=== PATIENT | male | born 1945 | race Caucasian/White ===

== ENCOUNTER 2018-01-23 06:44 | Inpatient (IN) | payer OTHER, BC ==
[2018-01-17 10:48] VITALS: BMI 32.5
[2018-01-23] MEDS ORDERED: CEFAZOLIN 2 GM/D5W 2 GM/50 ML ML IVPB ONE (06:45)
[2018-01-23] MEDS ORDERED: TRANEXAMIC ACID 1000 MG/10 ML VIAL IVPUSH ONE (07:00)
[2018-01-23] MEDS ORDERED: VANCOMYCIN 1 GRAM (PRE-DOCKED) 1,000 MG/250 ML BAG IVPB ONE (07:00)
--- NOTE | 2018-01-23 07:37 | HP ---
HISTORY OF PRESENT ILLNESS Patient is a 72 y/o male with a past medical history of DJD, hepatitis c, CAD, HLD, DM, BPH, patient present for an elective right total knee replacement, today with Dr Powers. 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 Smoking:none Alcohol:none Drugs: karly REVIEW OF SYSTEMS CONSTITUTIONAL: Absent: fever, chills, diaphoresis, generalized weakness, malaise, loss of appetite, weight change HEENT: Absent: rhinorrhea, nasal congestion, throat pain, throat swelling, difficulty swallowing, mouth swelling, ear pain, eye pain, visual changes CARDIOVASCULAR: Absent: chest pain, syncope, palpitations, irregular heart rate, lightheadedness , peripheral edema RESPIRATORY: Absent: cough, shortness of breath, dyspnea with exertion, orthopnea, wheezing, stridor, hemoptysis GASTROINTESTINAL: Absent: abdominal pain, abdominal distension, nausea, vomiting, diarrhea, constipation, melena, hematochezia GENITOURINARY: Absent: dysuria, frequency, urgency, hesitancy, hematuria, flank pain, genital pain MUSCULOSKELETAL: present: right knee pain Absent: myalgia, arthralgia, joint swelling, back pain, neck pain SKIN: Absent: rash, itching, pallor HEMATOLOGIC/IMMUNOLOGIC: Absent: easy bleeding, easy bruising, lymphadenopathy, frequent infections ENDOCRINE: Absent: unexplained weight gain, unexplained weight loss, heat intolerance, cold intolerance NEUROLOGIC: Absent: headache, focal weakness or paresthesias, dizziness, unsteady gait, seizure, mental status changes, bladder or bowel incontinence PSYCHIATRIC: Absent: anxiety, depression, suicidal or homicidal ideation, hallucinations. PHYSICAL EXAMINATION: GENERAL: Awake, alert, and fully oriented, in no acute distress. HEAD: Normal with no signs of trauma. EYES: Pupils equal, round and reactive to light, extraocular movements intact, sclera anicteric, conjunctiva clear. No lid lag. EARS, NOSE, THROAT: Ears normal, nares patent, oropharynx clear without exudates. Moist mucous membranes. NECK: Normal range of motion, supple without lymphadenopathy, JVD, or masses. LUNGS: Breath sounds equal, clear to auscultation bilaterally. No wheezes, and no crackles. No accessory muscle use. HEART: Regular rate and rhythm, normal S1 and S2 without murmur, rub or gallop. ABDOMEN: Soft, nontender, not distended, normoactive bowel sounds, no guarding, no rebound, no masses. No hepatomegaly or splenomegaly. MUSCULOSKELETAL: Normal range of motion at all joints. No bony deformities or tenderness. No CVA tenderness. UPPER EXTREMITIES: 2+ pulses, warm, well-perfused. No cyanosis. No clubbing. No peripheral edema. LOWER EXTREMITIES: 2+ pulses, warm, well-perfused. No calf tenderness. No peripheral edema. NEUROLOGICAL: Cranial nerves II-XII intact. Normal speech. Normal gait. PSYCHIATRIC: Cooperative. Good eye contact. Appropriate mood and affect. SKIN: multiple tattoos to billateral lower extremities Warm, dry, normal turgor , no rashes or lesions noted, normal capillary refill. Active Medications Generic Name Dose Route Start Last Admin Trade Name Freq PRN Reason Stop Dose Admin Vancomycin HCl 1,000 mg in 250 mls @ 250 mls/hr 01/23/18 07:00 Vancomycin (Pre-Docked) IVPB 01/23/18 07:59 ONCE ONE Protocol ASSESSMENT/PLAN: 1) MS djd -pending OR today for elective right total knee replacement with Dr Powers 2) cardiovascular CAD - continue fenobirate and asa - chart review completed, echo performed on 12/13/[address] reeves ef 75%, lv wnl and n/uclear stress test preserved lve systolic function, no evidence of ischemia or infarction 3) GI hep c - treated with hervana 2014 f/e/n - npo pending or ppx - mechanical ac only dispo: pt requires inpatient admission Visit type - Case Type Case Type: Scheduled Admission - Emergency Emergency Visit: No - New patient This patient is new to me today: Yes Date on this admission: 01/23/18 - Critical Care Critical Care patient: No
[2018-01-23] MEDS ORDERED: BUPIVACAINE HCL/PF 2.5 MG/ML - 30 ML VIAL IJ ONE (11:24)
[2018-01-23] MEDS ORDERED: BUPIVACAINE LIPOSOME/PF (EXPAREL) 266 MG/20 ML VIAL ONE (11:24)
[2018-01-23] MEDS ORDERED: MIDAZOLAM HCL 2 MG/2 ML SINGLE DOSE VIAL ONE ×3 (11:24→14:22)
[2018-01-23] MEDS ORDERED: PROPOFOL 20 ML ONE ×4 (12:19→14:13)
[2018-01-23] MEDS ORDERED: LIDOCAINE HCL/PF 2% SDV 5ML VIAL ONE (12:21)
[2018-01-23] MEDS ORDERED: ceFAZolin SODIUM 1 GM VIAL ONE ×2 (12:21→15:16)
[2018-01-23] MEDS ORDERED: VANCOMYCIN 1,000 MG VIAL (RESTRICTED TO ID ONLY) ONE (12:21)
[2018-01-23] MEDS ORDERED: ACETAMINOPHEN 1000 MG/100 ML VIAL (NON FORMULARY) IVPB ONE (13:52)
[2018-01-23] MEDS ORDERED: oxyCODONE HCL 5 MG TABLET PO PRN (13:52)
[2018-01-23] MEDS ORDERED: PROMETHAZINE HCL 25 MG/1 ML VIAL IVPUSH PRN (13:54)
[2018-01-23] MEDS ORDERED: ONDANSETRON 4 MG/2 ML VIAL IVPUSH PRN ×2 (13:54→15:11)
[2018-01-23] MEDS ORDERED: ACETAMINOPHEN 325 MG TABLET (FP) PO SCH (14:00)
[2018-01-23] MEDS ORDERED: LACTATED RINGERS SOLUTION 1,000 ML IV SCH ×2 (14:00→15:15)
[2018-01-23] MEDS ORDERED: MAGNESIUM HYDROX 2400MG/30ML ORAL SUSPENSION 30 ML CUP PO PRN (15:11)
[2018-01-23] MEDS ORDERED: MAG HYDROX/AL HYDROX/SIMETH 30 ML UNIT-DOSE CUP PO PRN (15:11)
--- NOTE | 2018-01-23 15:11 | OP ---
Operative Note - Note: Operative Date: 01/23/18 Pre-Operative Diagnosis: R knee DJD Operation: R TKA Implants: [place] Triathlon. Cemented. Femur - 7. Tibia - 7. Poly - 9mm, PS. Patella - 27mm Post-Operative Diagnosis: Same as Pre-op Surgeon: Atif Powers Robotic Machine Tender Production: Mingo Powers (Co-Surgeon) Anesthesiologist/MOVER HELPER: Gordy Coates Anesthesia: Spinal Specimens Removed: Bone, Soft Tissue Estimated Blood Loss (mls): 100 Drains & Tubes with Location: 1 x deep HemoVac Operative Report Dictated: Yes
[2018-01-23] MEDS ORDERED: BENZOIN/ALOE VERA/STORAX/TOLU 58 ML BOTTLE ONE (15:23)
[2018-01-23] MEDS ORDERED: ACETAMINOPHEN INJECTION 100 ML IVPB ONE (16:21)
[2018-01-23] MEDS ORDERED: CEFAZOLIN 1 GM/D5W 1 GM/50 ML BAG IVPB SCH (18:00)
[2018-01-23] MEDS: oxyCODONE HCL 5 MG TABLET PO PRN (18:20)
[2018-01-23] MEDS: CEFAZOLIN 1 GM/D5W 1 GM/50 ML BAG IVPB SCH (20:03)
[2018-01-23] MEDS: SENNOSIDES/DOCUSATE COMBO (SENNA PLUS) TABLET (UD) PO SCH (21:41)
[2018-01-23] MEDS: GABAPENTIN 300 MG CAPSULE (FP) PO SCH (21:41)
[2018-01-23] MEDS ORDERED: ASPIRIN 325 MG TABLET PO SCH (22:00)
[2018-01-23] MEDS ORDERED: oxyCODONE HCL 10 MG SUSTAINED ACTING TABLET PO SCH (22:00)
[2018-01-23] MEDS: ACETAMINOPHEN 325 MG TABLET (FP) PO SCH (23:17)
[2018-01-23] MEDS: ASPIRIN COATED 81 MG TABLET.EC PO SCH (23:18)
[2018-01-24] MEDS ORDERED: VANCOMYCIN 1 GRAM (PRE-DOCKED) 1,000 MG/250 ML BAG IVPB ONE (01:00)
[2018-01-24] MEDS: oxyCODONE HCL 5 MG TABLET PO PRN (03:09)
[2018-01-24] MEDS: CEFAZOLIN 1 GM/D5W 1 GM/50 ML BAG IVPB SCH (03:09)
[2018-01-24] MEDS: ACETAMINOPHEN 325 MG TABLET (FP) PO SCH ×3 (05:29→23:18)
--- NOTE | 2018-01-24 09:05 | PN ---
Physical Exam: SUBJECTIVE: Patient seen and examined OBJECTIVE: Vital Signs Period Temp Pulse Resp BP Sys/Greco Pulse Ox Last 24 Hr 97.6 F-98.4 F 52-94 18-20 104-134/49-89 96-98 GENERAL: The patient is awake, alert, and fully oriented, in no acute distress. HEAD: Normal with no signs of trauma. EYES: PERRL, extraocular movements intact, sclera anicteric, conjunctiva clear. No ptosis. ENT: Ears normal, nares patent, oropharynx clear without exudates, moist mucous membranes. NECK: Trachea midline, full range of motion, supple. LUNGS: Breath sounds equal, clear to auscultation bilaterally, no wheezes, no crackles, no accessory muscle use. HEART: Regular rate and rhythm, S1, S2 without murmur, rub or gallop. ABDOMEN: Soft, nontender, nondistended, normoactive bowel sounds, no guarding, no rebound, no hepatosplenomegaly, no masses. EXTREMITIES: 2+ pulses, warm, well-perfused, no edema. NEUROLOGICAL: Cranial nerves II through XII grossly intact. Normal speech, gait not observed. PSYCH: Normal mood, normal affect. SKIN: Warm, dry, normal turgor, no rashes or lesions noted Active Medications Generic Name Dose Route Start Last Admin Trade Name Markq PRN Reason Stop Dose Admin Acetaminophen 650 mg 01/24/18 00:00 01/24/18 05:29 Tylenol - PO 650 mg Q6HPO CINDY Administration Al Hydroxide/Mg Hydroxide 30 ml 01/23/18 15:11 Mylanta Oral Suspension - PO Q4H PRN DYSPEPSIA Aspirin 81 mg 01/23/18 22:30 01/23/18 23:18 Ecotrin - PO 81 mg BID CINDY Administration Fentanyl 25 mcg 01/23/18 13:54 Sublimaze Injection - IVPUSH [id number] PRN PAIN-PACU ORDER X 4 DOSES ONLY Fentanyl 50 mcg 01/23/18 13:54 Sublimaze Injection - IVPUSH [id number] PRN PAIN-PACU ORDER X 4 DOSES ONLY Gabapentin 300 mg 01/23/18 22:00 01/23/18 21:41 Neurontin - PO 300 mg BID CINDY Administration Lactated Ringer's 1,000 mls @ 125 mls/hr 01/23/18 14:00 Lactated Ringers Solution IV ASDIR [facility] Magnesium Hydroxide 30 ml 01/23/18 15:11 Milk Of Magnesia - PO PRN PRN CONSTIPATION Ondansetron HCl 4 mg 01/23/18 13:54 Zofran Injection IVPUSH Q6H PRN NAUSEA AND/OR VOMITING Ondansetron HCl 4 mg 01/23/18 15:11 Zofran Injection IVPUSH Q6H PRN NAUSEA Oxycodone HCl 5 mg 01/23/18 13:52 Roxicodone - PO Q3H PRN PAIN LEVEL 1-5 Oxycodone HCl 10 mg 01/23/18 13:52 01/24/18 03:09 Roxicodone - PO 10 mg Q3H PRN Administration PAIN LEVEL 6-10 Oxycodone HCl 10 mg 01/23/18 22:00 01/23/18 21:40 Oxycontin - PO 01/26/18 13:53 10 mg BID [facility] Administration Pantoprazole Sodium 40 mg 01/24/18 10:00 Protonix - PO DAILY [facility] Promethazine HCl 12.5 mg 01/23/18 13:54 Phenergan Injection - IVPUSH Q6H PRN NAUSEA-FOR RESCUE AFTER 15 MIN Senna/Docusate Sodium 2 tablet 01/23/18 22:00 01/23/18 21:41 Pericolace - PO 2 tablet BID [facility] Administration ASSESSMENT/PLAN:
[2018-01-24 09:17] LABS: ANION GAP 11 (8-16); BLOOD UREA NITROGEN 18 mg/dl (7-18); CALCIUM 8.8 mg/dl (8.4-10.2); CHLORIDE 106 mmol/L (98-107); CO2 18 mmol/L (22-28); CREATININE 1.2 mg/dl (0.6-1.3); GLUCOSE,RANDOM 139 mg/dl (74-106); POTASSIUM 4.2 mmol/L (3.5-5.1); SODIUM 135 mmol/L (136-145)
[2018-01-24 09:19] LABS: HEMOGLOBIN 12.8 GM/dl (11.7-16.9); MCH 30.5 pg (25.7-33.7); MCHC 33.8 g/dl (32.0-35.9); MEAN CELL VOLUME 90.3 fl (80-96); MEAN PLT VOLUME 11.2 fl (7.5-11.1); PLATELET COUNT 112 K/MM3 (134-434); RBC 4.21 M/mm3 (4.00-5.60); WHITE BLOOD COUNT 10.7 K/mm3 (4.0-10.8)
[2018-01-24] MEDS: GABAPENTIN 300 MG CAPSULE (FP) PO SCH ×2 (10:00→21:44)
[2018-01-24] MEDS: PANTOPRAZOLE 40 MG TABLET (FP) PO SCH (10:00)
[2018-01-24] MEDS: ASPIRIN COATED 81 MG TABLET.EC PO SCH ×2 (10:00→21:44)
[2018-01-24] MEDS: SENNOSIDES/DOCUSATE COMBO (SENNA PLUS) TABLET (UD) PO SCH ×2 (10:00→21:44)
--- NOTE | 2018-01-24 11:49 | PN ---
Progress Note (short form) - Note Progress Note: Anesthesiology Post-op POD#1 s/p right knee arthroplasty under regional/general anesthesia. Pt. is participating in PT this morning. He states that he was having some dizziness earlier related to taking the pain medicine. He states that now he is feeling a bit better but would like to avoid the oxycodone/oxycontin if possible. He does have some residual nerve block present but less so than earlier. VSS. 72 y.o. s/p right knee arthroplasty with stable post-operative course. I have d/c'd the scheduled oxycontin. PRN oxycodone and acetaminophen are still available. Continue management as per primary team.
--- NOTE | 2018-01-24 14:12 | DS ---
Physical Exam: SUBJECTIVE: Patient seen and examined, OBJECTIVE: Patient is a 72 y/o male with a past medical history of DJD, hepatitis c, CAD, HLD, DM, BPH, patient present for an elective right total knee replacement, with Dr Powers. Vital Signs Temperature 98.2 F 01/24/18 06:00 Pulse Rate 94 H 01/24/18 06:00 Respiratory Rate 20 01/24/18 08:18 Blood Pressure 104/49 01/24/18 06:00 O2 Sat by Pulse Oximetry (%) 98 01/24/18 08:18 PHYSICAL EXAM GENERAL: The patient is awake, alert, and fully oriented, in no acute distress. HEAD: Normal with no signs of trauma. EYES: PERRL, extraocular movements intact, sclera anicteric, conjunctiva clear. ENT: Ears normal, nares patent, oropharynx clear without exudates, moist mucous membranes. NECK: Trachea midline, full range of motion, supple. LUNGS: Breath sounds equal, clear to auscultation bilaterally, no wheezes, no crackles, no accessory muscle use. HEART: Regular rate and rhythm, S1, S2 without murmur, rub or gallop. ABDOMEN: Soft, nontender, nondistended, normoactive bowel sounds, no guarding, no rebound, no hepatosplenomegaly, no masses. EXTREMITIES: 2+ pulses, warm, well-perfused, no edema. RIGHT LOWER EXTREMITY: dressing, cdi,hemovac dressing, scant sangenous drainage noted NEUROLOGICAL: Cranial nerves II through XII grossly intact. Normal speech, gait not observed. PSYCH: Normal mood, normal affect. SKIN: Warm, dry, normal turgor, no rashes or lesions noted. LABS CBC,CMP WBC 10.7 K/mm3 (4.0-10.8) 01/24/18 08:04 RBC 4.21 M/mm3 (4.00-5.60) 01/24/18 08:04 Hgb 12.8 GM/dl (11.7-16.9) 01/24/18 08:04 Hct 38.0 % (35.4-49) 01/24/18 08:04 MCV 90.3 fl (80-96) 01/24/18 08:04 MCH 30.5 pg (25.7-33.7) 01/24/18 08:04 MCHC 33.8 g/dl (32.0-35.9) 01/24/18 08:04 RDW 13.0 % (11.9-15.9) 01/24/18 08:04 Plt Count 112 K/MM3 (134-434) L 01/24/18 08:04 MPV 11.2 fl (7.5-11.1) H 01/24/18 08:04 Sodium 135 mmol/L (136-145) L 01/24/18 08:04 Potassium 4.2 mmol/L (3.5-5.1) 01/24/18 08:04 Chloride 106 mmol/L (98-107) 01/24/18 08:04 Carbon Dioxide 18 mmol/L (22-28) L 01/24/18 08:04 Anion Gap 11 (8-16) 01/24/18 08:04 BUN 18 mg/dl (7-18) 01/24/18 08:04 Creatinine 1.2 mg/dl (0.6-1.3) 01/24/18 08:04 Random Glucose 139 mg/dl (74-106) H 01/24/18 08:04 Calcium 8.8 mg/dl (8.4-10.2) 01/24/18 08:04 HOSPITAL COURSE: The patient was admitted to the Med-Surg Unit after an elective right total knee replacement, . The day of surgery, the patient ambulated the hallways with assistance. Narcotic and non-narcotic pain management control was achieved with an oral and IV approach. POD #2, the surgical drain was removed fully intact and without incident. Romy-operative IV ABX were administered. DVT prophylaxis was achieved with SCDs and early ambulation. The patient ambulated with Physical Therapy and no services were recommended upon discharge. Narcotic scripts and or muscle relaxants were checked with [facility] prior to escibe. The discharge instructions and an oral pain management plan were reviewed with the patient. All questions answered. Above plan discussed with Dr. Powers and agreed. Date of Admission:01/23/18 Date of Discharge: 01/24/18 Minutes to complete discharge: 45 <Suzanne Wells - Last Filed: 01/24/18 14:12> Physical Exam: SUBJECTIVE: Patient seen and examined OBJECTIVE: Vital Signs Temperature 98 F 01/25/18 10:45 Pulse Rate 68 01/25/18 10:45 Respiratory Rate 18 01/25/18 10:45 Blood Pressure 167/75 01/25/18 10:45 O2 Sat by Pulse Oximetry (%) 95 01/25/18 08:33 PHYSICAL EXAM GENERAL: The patient is awake, alert, and fully oriented, in no acute distress. HEAD: Normal with no signs of trauma. EYES: PERRL, extraocular movements intact, sclera anicteric, conjunctiva clear. ENT: Ears normal, nares patent, oropharynx clear without exudates, moist mucous membranes. NECK: Trachea midline, full range of motion, supple. LUNGS: Breath sounds equal, clear to auscultation bilaterally, no wheezes, no crackles, no accessory muscle use. HEART: Regular rate and rhythm, S1, S2 without murmur, rub or gallop. ABDOMEN: Soft, nontender, nondistended, normoactive bowel sounds, no guarding, no rebound, no hepatosplenomegaly, no masses. EXTREMITIES: 2+ pulses, warm, well-perfused, no edema. NEUROLOGICAL: Cranial nerves II through XII grossly intact. Normal speech, gait not observed. PSYCH: Normal mood, normal affect. SKIN: Warm, dry, normal turgor, no rashes or lesions noted. LABS CBC,CMP WBC 10.7 K/mm3 (4.0-10.8) 01/24/18 08:04 RBC 4.21 M/mm3 (4.00-5.60) 01/24/18 08:04 Hgb 12.8 GM/dl (11.7-16.9) 01/24/18 08:04 Hct 38.0 % (35.4-49) 01/24/18 08:04 MCV 90.3 fl (80-96) 01/24/18 08:04 MCH 30.5 pg (25.7-33.7) 01/24/18 08:04 MCHC 33.8 g/dl (32.0-35.9) 01/24/18 08:04 RDW 13.0 % (11.9-15.9) 01/24/18 08:04 Plt Count 112 K/MM3 (134-434) L 01/24/18 08:04 MPV 11.2 fl (7.5-11.1) H 01/24/18 08:04 Sodium 135 mmol/L (136-145) L 01/24/18 08:04 Potassium 4.2 mmol/L (3.5-5.1) 01/24/18 08:04 Chloride 106 mmol/L (98-107) 01/24/18 08:04 Carbon Dioxide 18 mmol/L (22-28) L 01/24/18 08:04 Anion Gap 11 (8-16) 01/24/18 08:04 BUN 18 mg/dl (7-18) 01/24/18 08:04 Creatinine 1.2 mg/dl (0.6-1.3) 01/24/18 08:04 Random Glucose 139 mg/dl (74-106) H 01/24/18 08:04 Calcium 8.8 mg/dl (8.4-10.2) 01/24/18 08:04 HOSPITAL COURSE: Date of Admission:01/23/18 Date of Discharge: 01/25/18 The patient was admitted to the Med-Surg Unit after an elective repair of their (problem). Now, s/p ( procedure ). The day of surgery, the patient ambulated the hallways with assistance. Narcotic and non-narcotic pain management control was achieved with an oral and IV approach. POD #1, the surgical drain was removed fully intact and without incident. An xray was obtained and confirmed hardware placement at (level of ), no fractures or dislocations. Romy-operative IV ABX were administered. DVT prophylaxis was achieved with SCDs and early ambulation. The patient ambulated with Physical Therapy and no services were recommended upon discharge. Narcotic scripts and or muscle relaxants were checked with [facility] prior to escibe. The discharge instructions and an oral pain management plan were reviewed with the patient. All questions answered. Above plan discussed with Dr. Maqruez and agreed. Seen and examined this AM. Pt right hemovac drain removed and dressing applied without complications. Pt discharge summary reviewed and in aggreement. Pt to be discharged home. <Stephanie John - Last Filed: 01/25/18 11:47> Visit type - Case Type Case Type: Scheduled Admission - Emergency Emergency Visit: No - New patient This patient is new to me today: Yes Date on this admission: 01/25/18 - Critical Care Critical Care patient: No <John,Stephanie - Last Filed: 01/25/18 11:47>
[2018-01-25] MEDS: ACETAMINOPHEN 325 MG TABLET (FP) PO SCH ×2 (05:48→12:07)
[2018-01-25] MEDS: SENNOSIDES/DOCUSATE COMBO (SENNA PLUS) TABLET (UD) PO SCH (10:46)
[2018-01-25] MEDS: GABAPENTIN 300 MG CAPSULE (FP) PO SCH (10:46)
[2018-01-25] MEDS: PANTOPRAZOLE 40 MG TABLET (FP) PO SCH (10:46)
[2018-01-25] MEDS: ASPIRIN COATED 81 MG TABLET.EC PO SCH (10:46)
[2018-01-25 11:17] VITALS: BP 167/75; PULSE 68; TEMP 98
--- NOTE | 2018-01-25 16:39 | PATH ---
Surgical Pathology Report Patient Name: ZAHEER LEONG Med. Rec. #: [id number] /Age/Gender: 1945 (Age: 72) / M Account: [id number] Location: [facility] [place] MED-SURG Taken: 01/23/2018 Received: 01/23/2018 Reported: 01/25/2018 Physicians: Atif Powers M.D. Specimen(s) Received RIGHT KNEE BONE AND TISSUE Clinical History OA bilateral knees Final Diagnosis KNEE BONE AND SOFT TISSUE, RIGHT, TOTAL KNEE REPLACEMENT: DEGENERATIVE JOINT DISEASE. Electronically Signed Arminda Asif M.D. Gross Description Received in formalin labeled "right knee bone and soft tissue" is a 13 x 9 x 3 cm aggregate of multiple portions of bone and soft tissue. The tibial plateau measures 8 x 6 x 1.5 cm there are focal areas of eburnation identified. The articular surface is porter-yellow and diffusely granular. The underlying trabecular bone is yellow and hard. Mechanic Senior sections submitted in one cassette, following decalcification. __ MARYCRUZ/01/24/2018 marco/01/24/2018
--- NOTE | 2018-01-27 16:23 | OP ---
DATE OF OPERATION: DATE OF DICTATION: 01/27/2018 SURGEON: Atif Powers MD CO-SURGEON: Mingo Powers MD; physician's fish hatchery assistant at [employer] PREOPERATIVE DIAGNOSIS: Tricompartment osteoarthritis, right knee. POSTOPERATIVE DIAGNOSIS: Tricompartment osteoarthritis, right knee. OPERATION PERFORMED: Right cemented posterior stabilized total knee arthroplasty ([place]). ANESTHESIA: Conscious sedation with adductor block and spinal anesthesia. ANTIBIOTICS GIVEN: Kefzol 2 g, vancomycin preoperatively 1 g, and Kefzol 1 g given at the time of release of the tourniquet. PROCEDURE: Patient correctly identified, brought in the operating room. The right lower extremity was prepped, free draped in the routine manner with Betadine scrub solution, wiped with alcohol. Timeout was called, intraoperative evaluation of x-rays noted. A midline incision performed. The incision was taken through the skin and subcutaneous tissue down to the quadriceps tendon. A longitudinal incision was made into the quadriceps tendon along the medial aspect of the parapatellar medial aspect of the tibial tubercle. The patella was capsized laterally. Transection of the cruciate ligament was performed. Severe tricompartment osteoarthritis encountered. The patellar cut was made first with an oscillating saw from patellar ligament to quadriceps tendon receive a size 27 mm patellar button. The appropriate exposure of the tibial then performed, enabling extramedullary alignment jig applied to provide a neutral cut to the tibia to receive a size 7 baseplate. Once this had been performed, the femoral cuts were made with the appropriate jig system of [place] to receive a size 7 posterior stabilized component, ultimately a Triathlon posterior stabilized component was utilized. Once all trialing components were appreciated and found to be well seated, the flexion/extension gaps were even. The ligament stability in the coronal and sagittal plane were normal and there were no kinematic mismatches. The cementing was in 1 stage. The bone bed was thoroughly lavaged with pulse lavage, cemented in 1 stage, all extraneous cement was removed. This brought about excellent positioning of the implant. A slight tilting of the patella necessitated lateral release, which was done from inside the wound. This was a difficult knee replacement because of the size of the man and the massive hypertrophic osteoarthropathy. The closure was as follows: Quadriceps tendon: 1 Vicryl subcutaneous, 1 and 2-0 Vicryl; skin: 3-0 Monocryl with Steri-Strips. No drains utilized. OVERALL COMMENT: The operation went well. Postoperative x-rays were excellent. Atif Powers MD [id number]
== END 2018-01-25 13:02 | disposition home health service (06) | DRG 470 ==
LOC: FM/S 06:44
PROVIDERS: ADMIT Orthopaedic Surgery Orthopaedic Surgery of the Spine; ATTEND Orthopaedic Surgery Orthopaedic Surgery of the Spine
PROC: 0SRC0J9 Replacement of Right Knee Joint with Synthetic Substitute, Cemented, Open Approach (ICD-10-PCS; principal; 2018-01-23 13:00)
DX: M17.11 Unilateral primary osteoarthritis, right knee (principal); I25.10 Atherosclerotic heart disease of native coronary artery without angina pectoris; E78.5 Hyperlipidemia, unspecified; E11.9 Type 2 diabetes mellitus without complications; N40.0 Benign prostatic hyperplasia without lower urinary tract symptoms; Z86.19 Personal history of other infectious and parasitic diseases
CPT/HCPCS: 36415; 73560-TC-RT-FY; 80048; 85027; 88304-TC; 88311-TC; 94760; 97116-GP; 97161-GP; J0131

== ENCOUNTER 2018-12-04 05:52 | Inpatient (IN) | payer OTHER, BC ==
[2018-11-25 12:35] VITALS: BMI 34.4
[2018-12-04] MEDS ORDERED: MIDAZOLAM HCL 2 MG/2 ML SINGLE DOSE VIAL ONE ×3 (06:31→10:21)
[2018-12-04] MEDS ORDERED: SODIUM CHLORIDE 0.9% P/F 10 ML VIAL IJ ONE (06:32)
[2018-12-04] MEDS ORDERED: BUPIVACAINE LIPOSOME/PF (EXPAREL) 266 MG/20 ML VIAL ONE (06:32)
[2018-12-04] MEDS ORDERED: CEFAZOLIN 2 GM in DEXTROSE 5%-WATER - 100 ML IVPB ONE (07:20)
--- NOTE | 2018-12-04 07:25 | HP ---
History & Physical Update - History History: No Change - Physical Physical: No Change - Assessment Assessment: No Change - Plan Plan: No Change (no change since visit on 11/15/18)
[2018-12-04] MEDS ORDERED: BUPIVACAINE HCL/PF 0.5% (5MG/ML) 10 ML VIAL ONE (07:27)
[2018-12-04] MEDS ORDERED: TRANEXAMIC ACID 1000 MG/10 ML VIAL ONE (07:29)
[2018-12-04] MEDS ORDERED: ceFAZolin SODIUM 1 GM VIAL ONE (07:29)
[2018-12-04] MEDS ORDERED: PROPOFOL 20 ML ONE ×2 (07:30)
[2018-12-04] MEDS ORDERED: BENZOIN TINCTURE SWABSTICK TP ONE (10:46)
[2018-12-04] MEDS ORDERED: MAG HYDROX/AL HYDROX/SIMETH 30 ML UNIT-DOSE CUP PO PRN (10:56)
[2018-12-04] MEDS ORDERED: ONDANSETRON 4 MG/2 ML VIAL IVPUSH PRN (10:56)
[2018-12-04] MEDS ORDERED: MAGNESIUM HYDROX 2400MG/30ML ORAL SUSPENSION 30 ML CUP PO PRN (10:56)
[2018-12-04] MEDS ORDERED: LACTATED RINGERS SOLUTION 1,000 ML IV SCH (11:00)
--- NOTE | 2018-12-04 11:02 | PN ---
Progress Note (short form) - Note Progress Note: 72M s/p LEFT total knee replacement POD #0. -Pain control. -DVT PPx: -Chemical: ASA 81mg PO BID x 6 weeks. -Mechanical: JOCE's, SCD's. -Incentive spirometry. -PT/OT/Rehab, OOB. -WBAT LLE. -Antibiotics: Ancef x 2 post op doses. -f/u drain output. -f/u post-op trial of void. -Diet as tolerated. -Keep dressing clean & dry. -Care per medical hospitalist team. -f/u [facility] [place] office 12/13/2018; call for appointment; [phone]. -Will follow. Atif Powers MD (Orthopaedic Surgery).
--- NOTE | 2018-12-04 11:05 | OP ---
Operative Note - Note: Operative Date: 12/04/18 Pre-Operative Diagnosis: Left knee osteoarthritis Operation: Left total knee replacement Implants: [place] Triathlon: Femur - 5. Tibia - 6. Poly - 9mm, PS. Patella - 27mm, symmetric Post-Operative Diagnosis: Same as Pre-op Surgeon: Atif Powers Barrel Assembler Helper: Mingo Powers Anesthesiologist/FILTER PRESS TENDER HEAD: Zain Neely Anesthesia: Spinal Specimens Removed: Bone, soft tissue Estimated Blood Loss (mls): 0 Drains & Tubes with Location: 1 x deep HemoVac Fluid Volume Replaced (mls): 1,000 Operative Report Dictated: Yes
[2018-12-04] MEDS ORDERED: oxyCODONE HCL 5 MG TABLET PO PRN (12:53)
--- NOTE | 2018-12-04 13:43 | CONSULT ---
Consultation: REQUESTING PROVIDER: Dr. Atif Powers CONSULT REQUEST: We have been asked to medically evaluate this patient during the post-operative period. HISTORY OF PRESENT ILLNESS: 72 year-old male with a PMH significant for HTN, HLD, CAD, Hep C s/p Harvoni treatment, DJD, and renal calculi. Patient is s/p left total knee replacement today. REVIEW OF SYSTEMS: CONSTITUTIONAL: Absent: fever, chills, diaphoresis, generalized weakness, malaise, loss of appetite, weight change HEENT: Absent: rhinorrhea, nasal congestion, throat pain, throat swelling, difficulty swallowing, mouth swelling, ear pain, eye pain, visual changes CARDIOVASCULAR: Absent: chest pain, syncope, palpitations, irregular heart rate, lightheadedness , peripheral edema RESPIRATORY: Absent: cough, shortness of breath, dyspnea with exertion, orthopnea, wheezing, stridor, hemoptysis GASTROINTESTINAL: Absent: abdominal pain, abdominal distension, nausea, vomiting, diarrhea, constipation, melena, hematochezia GENITOURINARY: Absent: dysuria, frequency, urgency, hesitancy, hematuria, flank pain, genital pain MUSCULOSKELETAL: Absent: myalgia, arthralgia, joint swelling, back pain, neck pain SKIN: Absent: rash, itching, pallor HEMATOLOGIC/IMMUNOLOGIC: Absent: easy bleeding, easy bruising, lymphadenopathy, frequent infections ENDOCRINE: Absent: unexplained weight gain, unexplained weight loss, heat intolerance, cold intolerance NEUROLOGIC: Absent: headache, focal weakness or paresthesias, dizziness, unsteady gait, seizure, mental status changes, bladder or bowel incontinence PSYCHIATRIC: Absent: anxiety, depression, suicidal or homicidal ideation, hallucinations. PHYSICAL EXAMINATION Vital Signs - 24 hr 12/04/18 12/04/18 12/04/18 07:04 11:35 11:40 Temperature 98.1 F 97.8 F Pulse Rate 107 H 68 64 Respiratory 16 14 16 Rate Blood Pressure 132/78 130/78 135/95 O2 Sat by Pulse 96 Oximetry (%) GENERAL: Awake, alert, and fully oriented, in no acute distress. LUNGS: Breath sounds equal, clear to auscultation bilaterally. No wheezes, and no crackles. No accessory muscle use. HEART: Regular rate and rhythm, S1 and S2 ABDOMEN: Soft, nontender, not distended UPPER EXTREMITIES: 2+ pulses, warm, well-perfused. No cyanosis. No clubbing. Cap refill <2 seconds. No peripheral edema. LOWER EXTREMITIES: 2+ pulses, warm, well-perfused. SCDs and TEDs b/l. Surgical wrap on LLE c/d/i with ice pack. Wound not visualized. +flex/ext toes, + sensory ; Hemovac drain sanguinous fluid NEUROLOGICAL: Cranial nerves II-XII intact. Normal speech. Active Medications Generic Name Dose Route Start Last Admin Trade Name Freq PRN Reason Stop Dose Admin Acetaminophen 650 mg 12/04/18 14:00 Tylenol - PO 12/07/18 13:59 Q6H CINDY Al Hydroxide/Mg Hydroxide 30 ml 12/04/18 10:56 Mylanta Oral Suspension - PO Q4H PRN DYSPEPSIA Aspirin 81 mg 12/04/18 22:00 Asa - PO BID [facility] Cholecalciferol 5,000 unit 12/05/18 10:00 Vitamin D3 - PO DAILY [facility] Fenofibric Acid 135 mg 12/04/18 22:00 Trilipix - PO HS [facility] Folic Acid 1 mg 12/04/18 22:00 Folic Acid - PO HS [facility] Cefazolin Sodium/Dextrose 2 gm in 50 mls @ 100 mls/hr 12/04/18 16:00 Ancef 2 Gm Premixed Ivpb - IVPB 12/05/18 00:29 Q8H CINDY Lactated Ringer's 1,000 mls @ 125 mls/hr 12/04/18 11:00 Lactated Ringers Solution IV 12/05/18 06:00 ASDIR CINDY Magnesium Hydroxide 30 ml 12/04/18 10:56 Milk Of Magnesia - PO PRN PRN CONSTIPATION Ondansetron HCl 4 mg 12/04/18 10:56 Zofran Injection IVPUSH Q6H PRN NAUSEA Oxycodone HCl 5 mg 12/04/18 12:53 Roxicodone - PO Q3H PRN PAIN LEVEL 1-5 Oxycodone HCl 10 mg 12/04/18 12:53 Roxicodone - PO Q3H PRN PAIN LEVEL 6-10 Oxycodone HCl 10 mg 12/04/18 22:00 Oxycontin - PO 12/07/18 12:55 BID CINDY Pantoprazole Sodium 40 mg 12/05/18 10:00 Protonix - PO DAILY [facility] Senna/Docusate Sodium 2 tablet 12/04/18 22:00 Pericolace - PO BID CINDY ASSESSMENT/PLAN 72 year-old male with a PMH significant for HTN, HLD, CAD, Hep C s/p Harvoni treatment, DJD, and renal calculi. Patient is s/p left total knee replacement today. DJD s/p left total knee replacement --POD #0 --perioperative antibiotics per surgery --pain management per surgery --ASA 81mg BID --protonix --bowel regimen --incentive spirometry --Hemovac drain, monitor output --labs in am Hypertension --BP stable --continue Toprol XL Hyperlipidemia --not on statin therapy Coronary artery disease --continue beta immanuel --takes daily ASA, will now be on ASA BID post-op x 6 weeks Hepatitis C --s/p Harvoni treatment --no acute issues FEN Fluids: LR @125mL/hr Electrolytes: replete as indicated Nutrition: regular diet DVT prophylaxis: OOB, ambulation, SCDs, TEDs, ASA 81mg BID Physical therapy Dispo: We will continue to follow the patient. Thank you for this consultative opportunity. Visit type - Emergency Visit Emergency Visit: No - New Patient This patient is new to me today: Yes Date on this admission: 12/04/18 - Critical Care Critical Care patient: No
[2018-12-04] MEDS: ACETAMINOPHEN 325 MG TABLET (FP) PO SCH ×2 (14:39→20:00)
[2018-12-04] MEDS: oxyCODONE HCL 5 MG TABLET PO PRN (14:40)
--- NOTE | 2018-12-04 14:53 | OP ---
DATE OF OPERATION: 12/04/2018 SURGEON: Atif Powers MD LOW PRESSURE BOILER TENDER: Mingo Powers MD; KYLE Vidal PREOPERATIVE DIAGNOSIS: Left fixed varus tricompartment osteoarthritis knee. POSTOPERATIVE DIAGNOSIS: Left fixed varus tricompartment osteoarthritis knee. OPERATION: Left posterior stabilized total knee arthroplasty (Laverne cemented) . ANESTHESIA: Peripheral block spinal anesthesia with conscious sedation. ANTIBIOTICS GIVEN: Kefzol 2 g, vancomycin 1 g preoperative, Kefzol 1 g at the time of release of the tourniquet. TOURNIQUET TIME: 120 minutes. OPERATION DETAILS: Patient correctly identified, brought to the operating room. The left lower extremity was prepped, free draped in the routine manner with Betadine scrub solution, wiped off with alcohol, DuraPrep applied. Midline incision was utilized. This was a sub-vastus approach total knee arthroplasty with the proximal medial aspect of the tibial soft tissues dissected cleanly off the proximal medial tibial bone bed and then the continuation along the soft tissue plane half an inch distal to the border of vastus medialis all the way around to the attachment of the muscle onto the intermuscular septum. Using bipolar Bovie to diathermize small bleeder vessels on the medial aspect of this muscle dissection. The suprapatellar pouch was split longitudinally and a blunt Hohmann placed on the undersurface of the vastus medialis. The 2 towel clip clamps were seated, one into the quadriceps tendon and one into patellar ligament, and holding the patella vertically up, the patella cut was made and the appropriate jig settings seated for a 27-mm patellar button. The patella was cut freehand with no complications utilizing Whitesides principles from the cut being made from patellar ligament to quadriceps tendon. The knee was flexed. Transsection of the ACL performed. An extensive medial release was necessary in order to bring this knee into realignment. This necessitated a dissection of the semimembranosus as well. Once the tibia was mobilized forwards, appropriate jigs were seated. These were extramedullary jig seatings. The tibia was cut. The measurement size of the tibial tray was size 6. The femur was then cut through to 3 degrees of external rotation, 8 mm of bone were taken off the distal end of the femur to maintain the joint line and the jigs were seated in accordance with the epicondylar axis and Whitesides line through the intercondylar notch. The extension gaps were even at 9 mm. The appropriate jig measurement readings were for a size 5 femur (Triathlon). The cuts were made appropriately, the trial components seated. Excellent reduction achieved with a 9 mm polyethylene spacer. The tibial lugholes and fins were cut into the bone bed with the appropriate device. The bone bed was then thoroughly lavaged with pulse lavage. Cementing was in 1 stage: Tibia, femur, then patella. All extraneous cement removed. Appropriate holding of the components in position with the appropriate jig devices until the cement had cured. Once the cement had set and cured, all extremities cement was removed. The wounds were thoroughly lavaged throughout. A 9-mm polyethylene spacer was seated for a posterior stabilized knee. This brought the knee into full extension. No instability in all planes, that is, in full extension both in the coronal and sagittal plane, and stability in the coronal and sagittal plane in 90 degrees of flexion also appeared completely normal. A Hohmann was placed between the femoral component and the tibial tray to ensure the appropriate tension on the medial side. The closure was as follows: Retinacular tissue to remaining retinacular tissue on the vastus medialis; subcutaneous: 1 Vicryl; the deep tissues were all sutured with number 1 Vicryl and firm closure achieved; skin: 3-0 Monocryl; with Steri-Strips. Drainage: A 1/8 -inch Hemovac x1, the drain placed in the vastus medialis release site on the medial side of the distal femur. Operation went well, no complications. MD AIRAM [id number] MTDD
[2018-12-04] MEDS: CEFAZOLIN 2 GM/D5W 2 GM/50 ML ML IVPB SCH (16:30)
[2018-12-04] MEDS ORDERED: SODIUM CHLORIDE 500 ML IV STA (17:58)
[2018-12-04] MEDS: SENNOSIDES/DOCUSATE COMBO (SENNA PLUS) TABLET (UD) PO SCH (21:37)
[2018-12-04] MEDS: FOLIC ACID 1 MG TABLET (FP) PO SCH (21:37)
[2018-12-04] MEDS: ASPIRIN 81 MG CHEWABLE TABLETS PO SCH (21:38)
[2018-12-04] MEDS: oxyCODONE HCL 10 MG SUSTAINED ACTING TABLET PO SCH (21:38)
[2018-12-04] MEDS: FENOFIBRIC ACID 135 MG CAP PO SCH (21:38)
[2018-12-04] MEDS ORDERED: FENOFIBRATE NANOCRYSTALLIZED 160 MG PO SCH (22:00)
[2018-12-05] MEDS: ACETAMINOPHEN 325 MG TABLET (FP) PO SCH ×4 (03:05→19:44)
[2018-12-05] MEDS: oxyCODONE HCL 5 MG TABLET PO PRN (03:05)
[2018-12-05] MEDS: CEFAZOLIN 2 GM/D5W 2 GM/50 ML ML IVPB SCH (05:32)
--- NOTE | 2018-12-05 07:21 | PN ---
Physical Exam: SUBJECTIVE: Patient seen and examined. Reports that pain is well-controlled. Voiding normally. OBJECTIVE: Vital Signs Period Temp Pulse Resp BP Sys/Greco Pulse Ox Last 24 Hr 97.3 F-100.8 F 60-89 12-18 85-149/43-95 92-100 GENERAL: The patient is awake, alert, and fully oriented, in no acute distress. HEAD: Normal with no signs of trauma. EYES: PERRL, extraocular movements intact, sclera anicteric, conjunctiva clear. No ptosis. ENT: Ears normal, nares patent, oropharynx clear without exudates, moist mucous membranes. NECK: Trachea midline, full range of motion, supple. LUNGS: Breath sounds equal, clear to auscultation bilaterally, no wheezes, no crackles, no accessory muscle use. HEART: Regular rate and rhythm, S1, S2 without murmur, rub or gallop. ABDOMEN: Soft, nontender, nondistended, normoactive bowel sounds, no guarding, no rebound, no hepatosplenomegaly, no masses. EXTREMITIES: 2+ pulses, warm, well-perfused, no edema. NEUROLOGICAL: Cranial nerves II through XII grossly intact. Normal speech, gait not observed. PSYCH: Normal mood, normal affect. SKIN: Warm, dry, normal turgor, no rashes or lesions noted Active Medications Generic Name Dose Route Start Last Admin Trade Name Freq PRN Reason Stop Dose Admin Acetaminophen 650 mg 12/04/18 14:00 12/05/18 03:05 Tylenol - PO 12/07/18 13:59 650 mg Q6H CINDY Administration Al Hydroxide/Mg Hydroxide 30 ml 12/04/18 10:56 Mylanta Oral Suspension - PO Q4H PRN DYSPEPSIA Aspirin 81 mg 12/04/18 22:00 12/04/18 21:38 Asa - PO 81 mg BID CINDY Administration Cholecalciferol 5,000 unit 12/05/18 10:00 Vitamin D3 - PO DAILY CINDY Fenofibric Acid 135 mg 12/04/18 22:00 12/04/18 21:38 Trilipix - PO 135 mg HS CINDY Administration Folic Acid 1 mg 12/04/18 22:00 12/04/18 21:37 Folic Acid - PO 1 mg HS CINDY Administration Magnesium Hydroxide 30 ml 12/04/18 10:56 Milk Of Magnesia - PO PRN PRN CONSTIPATION Ondansetron HCl 4 mg 12/04/18 10:56 Zofran Injection IVPUSH Q6H PRN NAUSEA Oxycodone HCl 5 mg 12/04/18 12:53 Roxicodone - PO Q3H PRN PAIN LEVEL 1-5 Oxycodone HCl 10 mg 12/04/18 12:53 12/05/18 03:05 Roxicodone - PO 10 mg Q3H PRN Administration PAIN LEVEL 6-10 Oxycodone HCl 10 mg 12/04/18 22:00 12/04/18 21:38 Oxycontin - PO 12/07/18 12:55 10 mg BID CINDY Administration Pantoprazole Sodium 40 mg 12/05/18 10:00 Protonix - PO DAILY CINDY Senna/Docusate Sodium 2 tablet 12/04/18 22:00 12/04/18 21:37 Pericolace - PO 2 tablet BID CINDY Administration ASSESSMENT/PLAN 72 year-old male with a PMH significant for HTN, HLD, CAD, Hep C s/p Harvoni treatment, DJD, and renal calculi. Patient is s/p left total knee replacement yesterday, DJD s/p left total knee replacement --POD #1 --perioperative antibiotics per surgery --pain management per surgery --ASA 81mg BID --protonix --bowel regimen --incentive spirometry --Hemovac draining sanguinous fluid (30 mL) --labs in am Hypertension --BP stable --continue Toprol XL Hyperlipidemia --not on statin therapy Coronary artery disease --continue beta immanuel --takes daily ASA, will now be on ASA BID post-op x 6 weeks Hepatitis C --s/p Harvoni treatment --no acute issues FEN Fluids: Dc'd Electrolytes: replete as indicated Nutrition: regular diet DVT prophylaxis: OOB, ambulation, SCDs, TEDs, ASA 81mg BID Physical therapy Dispo: We will continue to follow the patient. Thank you for this consultative opportunity. Visit type - Emergency Visit Emergency Visit: No - New Patient This patient is new to me today: Yes Date on this admission: 12/05/18 - Critical Care Critical Care patient: No - Discharge Referral Referred to [facility] No
--- NOTE | 2018-12-05 08:04 | PN ---
Progress Note (short form) - Note Progress Note: POD #1 s/p Left TKR Sitting in chair at bedside. Reclined so both legs are in extension. Ice pack to left knee is in place. RN informs me that he didn't void last night...gave him a bolus of fluid. Patient states he has since voided. C/o mild incisional tenderness. Adequate pain control with medications ordered. Hasn't been oob/ ambulate. Using his incentive spirometer as directed. Denies n/v/f/c, CP, palpitations, SOB or DEAN. Last Vital Signs Temp Pulse Resp BP Pulse Ox 98.8 F 89 18 110/72 94 L //19 06:00 // 06:00 // 06:00 // 06:00 // 06:00 Gen: alert. nad. LE: LLE dressing c/d/i. Ice pack in place. 5/5 dorsi/plantar felxion. SCDs bilat. No edema. Hemovac 30mL (sanguinous) Problem List - Problems (1) Left knee DJD Assessment/Plan: POD #1 s/p LEFT TKR secondary to DJD - Pain control. -DVT PPx: -Chemical: ASA 81 mg po BID x 6 weeks -Mechanical: JOCE's, SCD's -Incentive Spirometry. -PT/OT/Rehab, OOB. -WBAT LLE -f/u drain output -f/u am labs. -Care per medical hospitalist team. -Discharge planning: f/u [facility] [place] office recreation worker for appointment : -Above plan discussed with Dr. Mingo Powers and agrees Code(s): M17.12 - UNILATERAL PRIMARY OSTEOARTHRITIS, LEFT KNEE
[2018-12-05 08:19] LABS: HEMATOCRIT 35.9 % (35.4-49); MCH 30.5 pg (25.7-33.7); MCHC 33.6 g/dl (32.0-35.9); PLATELET COUNT 186 K/MM3 (134-434); RBC 3.94 M/mm3 (4.00-5.60); RDW 13.6 % (11.9-15.9); WHITE BLOOD COUNT 9.6 K/mm3 (4.0-10.8)
[2018-12-05 08:25] LABS: ANION GAP 5 MMOL/L (8-16); BLOOD UREA NITROGEN 16 mg/dl (7-18); CALCIUM 8.5 mg/dl (8.5-10); CHLORIDE 107 mmol/L (98-107); CO2 25 mmol/L (21-32); CREATININE 1.2 mg/dl (0.55-1.3); GLUCOSE,RANDOM 129 mg/dl (74-106); POTASSIUM 4.3 mmol/L (3.5-5.1); SODIUM 137 mmol/L (136-145)
[2018-12-05] MEDS: SENNOSIDES/DOCUSATE COMBO (SENNA PLUS) TABLET (UD) PO SCH ×2 (09:43→21:27)
[2018-12-05] MEDS: PANTOPRAZOLE 40 MG TABLET (FP) PO SCH (09:43)
[2018-12-05] MEDS: ASPIRIN 81 MG CHEWABLE TABLETS PO SCH ×2 (09:43→21:27)
[2018-12-05] MEDS: oxyCODONE HCL 10 MG SUSTAINED ACTING TABLET PO SCH ×2 (09:45→21:42)
[2018-12-05] MEDS: CHOLECALCIFEROL (VITAMIN D3) 1,000 UNIT TABLET (FP) PO SCH (09:45)
--- NOTE | 2018-12-05 15:28 | PN ---
Progress Note (short form) - Note Progress Note: ANESTHESIA POSTOP 72 yo male s/p L TKA Patient sitting comfortably in chair between session in PT. He says pain is adequately controlled. Tolerating PO VSS, Afebrile Continue current care. Encouraged active participation in PT and use of incentive spirometer
[2018-12-05] MEDS: FOLIC ACID 1 MG TABLET (FP) PO SCH (21:27)
[2018-12-05] MEDS: FENOFIBRIC ACID 135 MG CAP PO SCH (21:27)
[2018-12-06] MEDS: ACETAMINOPHEN 325 MG TABLET (FP) PO SCH ×3 (01:13→14:28)
--- NOTE | 2018-12-06 09:20 | DS ---
"Physical Exam: SUBJECTIVE: POD #2 s/p Left TKR Patient seen and examined while sitting in chair at bedside. Reclined so both legs are in extension. Ice pack to left knee is in place. Patient states he experienced some bleeding at the inferior portion of his dressing last night which was reinforced by the nurse. He states his pain is controlled and he has been OOB ambulating with PT. He is tolerating his regular diet and has been voiding without limitation. He Denies n/v/f/c, CP, palpitations, SOB or DEAN. Vital Signs Temp 99.1 F 12/06/18 06:00 Pulse 77 12/06/18 08:28 Resp 18 12/06/18 08:28 BP 119/70 12/06/18 08:28 Pulse Ox 96 12/06/18 08:28 Intake & Output 12/05/18 12/05/18 12/06/18 11:59 23:59 11:59 Intake Total 475 Output Total 15 30 60 Balance -15 -30 415 Intake: Oral 475 Output: Drainage 15 30 60 Left Knee 15 30 60 Other: Voiding Method Urinal Urinal Toilet CBC, BMP patient refused PHYSICAL EXAM GENERAL: The patient is awake, alert, and fully oriented, in no acute distress. HEAD: Normal with no signs of trauma. EYES: sclera anicteric, conjunctiva clear. NECK: Trachea midline, LUNGS: no auditory wheezes, unlabored resp on RA, no accessory muscle use. EXTREMITIES: L LE with diffuse edema throughout appropriate to status, dry blood and collection of superficial blood noted on dressing/steris- no evidence of active bleeding or d/c, no tracking erythema, no evidence of collection when pressure applied to margins of incisions. Blistering seen over medial and lateral aspect of knee joint consistent with dressing adhesive. LE compartments soft with mild ttp, 5/5 dorsi/plantar felxion. SCDs bilat. drain removed with tip fully intact and drain site clean and dry with no active d/c. pressure dressing applied. foot warm and well perfused Right LE compartments soft, supple and non-tender, scd's in place and foot warm and well perfused NEUROLOGICAL: Cranial nerves II through XII grossly intact. Normal speech, gait not observed. PSYCH: Normal mood, normal affect. SKIN: Warm, dry, normal turgor, no rashes or lesions noted. HOSPITAL COURSE: Date of Admission:12/04/18 The patient was admitted to the Med-Surg Unit after an elective repair of their Left Knee arthritis. Now, s/p left total knee replacement. An xray was obtained in the OR and confirmed hardware in good position with no fractures or dislocations. The day of surgery, the patient ambulated the hallways with assistance. Narcotic and non-narcotic pain management control was achieved with an oral and IV approach. POD #2, the surgical drain was removed fully intact and without incident. Romy-operative IV ABX were administered. DVT prophylaxis was achieved with Aspirin, SCDs and early ambulation. The patient ambulated with Physical Therapy and no services were recommended upon discharge. Narcotic scripts were checked with [facility] prior to escibe. The discharge instructions and an oral pain management plan were reviewed with the patient. All questions answered. Above plan discussed with Dr. Powers and agreed. Date of Discharge: 12/06/18 Minutes to complete discharge: 25 Discharge Summary Reason For Visit: OSTEOARTHRITIS LEFT KNEE Current Active Problems Left knee DJD (Acute) Condition: Stable - Instructions Diet, Activity, Other Instructions: Dr. Powers Discharge Instructions for Knee Replacement Post Operative Instructions Physical activity Physical Therapist will come to your home for the first 5 days. You will be set up with outpatient PT at your first post-operative visit. Use assistive devices for ambulation at all times. Weight bearing as tolerated on your surgical side. Do not put pillow under knee. May put pillow under heel. Wound care Leave your surgical dressing in place. Do not change the dressing until seen by your surgeon in the office. No baths or showers. Do not submerge your incision. Do not apply any ointments or lotions to your incision. Please call the office if your dressing is soiled/dirty or is falling off. Apply Graduated Compression Stockings (TEDS) to both lower extremities - remove daily for hygiene ONLY. Diet There are no dietary restrictions. Eat healthy, high-fiber foods. Drink 6 to 8 glasses of liquid each day. This will assist in keeping your bowels are regular. Pain management Any pain prescription medication ordered should be taken as prescribed for moderate to severe pain. Do not take additional Tylenol while taking Percocet. Take Aspirin 81 mg two times a day for a total of 6 weeks to prevent blood clots. Call Dr. Powers for any of the following: Severe pain not relieved by medication Fever of 101 or higher Excessive bleeding or drainage on dressing Inability to urinate If you experience chest pain or shortness of breath, please seek emergency care immediately. Please call the office at to confirm your post-op appointment for the week following surgery. [facility] Report was requested by: Arminda Linn | Reference #: [id number] 10/31/2018 oxycodone-acetaminophen 5-325 mg / 15 tabs by [facility] Disposition: HOME - Home Medications Comprehensive Discharge Medication List: Ambulatory Orders Fenofibrate Nanocrystallized [Triglide] 160 mg PO HS 01/17/18 Folic Acid - 1 mg PO HS 01/17/18 Cholecalciferol (Vitamin D3) [Vitamin D3] 5,000 unit PO DAILY 11/25/18 Psyllium Husk [Metamucil] 660 gm PO HS PRN 11/25/18 Welaka-3 Fatty Acids [Welaka-3] 1,000 mg PO DAILY 12/04/18 Aspirin [ASA -] 81 mg PO BID #84 tab.chew 12/06/18 Mag Hydrox/Al Hydrox/Simeth [Mylanta Oral Suspension -] 30 ml PO Q4H PRN cup Magnesium Hydrox 2400MG/30Ml [Milk of Magnesia -] 30 ml PO PRN PRN cup Oxycodone HCl/Acetaminophen [Percocet 5-325 mg Tablet] 1 - 2 tab PO Q4H PRN #20 tablet MDD 6 12/06/18 Problem List - Problems (1) Left knee DJD Assessment/Plan: Assessment/Plan: POD #2 s/p LEFT TKR, doing well. - Pain control. -DVT PPx: -Chemical: ASA 81 mg po BID x 6 weeks -Mechanical: JOCE's, SCD's -Incentive Spirometry. -PT/OT/Rehab, OOB. -WBAT LLE -Care per medical hospitalist team. -Discharge planning: for home with family today. -f/u [facility] [place] office election supervisor for appointment: -Above plan discussed with Dr. Mingo Powers and agrees Code(s): M17.12 - UNILATERAL PRIMARY OSTEOARTHRITIS, LEFT KNEE This patient is new to me today: Yes Date on this admission: 12/06/18 Emergency Visit: No Critical Care patient: No - Discharge Referral Referred to [facility] No"
[2018-12-06] MEDS: CHOLECALCIFEROL (VITAMIN D3) 1,000 UNIT TABLET (FP) PO SCH (09:29)
[2018-12-06] MEDS: SENNOSIDES/DOCUSATE COMBO (SENNA PLUS) TABLET (UD) PO SCH (09:29)
[2018-12-06] MEDS: ASPIRIN 81 MG CHEWABLE TABLETS PO SCH (09:29)
[2018-12-06] MEDS: PANTOPRAZOLE 40 MG TABLET (FP) PO SCH (09:30)
[2018-12-06] MEDS: oxyCODONE HCL 10 MG SUSTAINED ACTING TABLET PO SCH (09:30)
[2018-12-06 15:28] VITALS: BP 118/63; PULSE 88; TEMP 97.9
--- NOTE | 2018-12-06 15:44 | PATH ---
Surgical Pathology Report Patient Name: ZAHEER LEONG Med. Rec. #: [id number] /Age/Gender: 1945 (Age: 72) / M Account: [id number] Location: [facility] Taken: 12/04/2018 Received: 12/04/2018 Reported: 12/06/2018 Physicians: Mingo Powers M.D. Specimen(s) Received LEFT KNEE BONES Clinical History Left knee osteoarthritis Final Diagnosis BONE, LEFT KNEE, TOTAL KNEE REPLACEMENT: DEGENERATIVE JOINT DISEASE. Electronically Signed Arminda Asif M.D. Gross Description Received in formalin labeled "bone left knee," is a 13.5 x 8.5 x 2.0 cm aggregate of multiple irregular portions of bone and soft tissue. The tibial plateau measures 8.2 x 5.6 x 1.8 cm. There are no areas of eburnation identified. The articular surfaces are porter-yellow and focally granular. The underlying trabecular bone is yellow and hard. Card Sorter sections are submitted in one cassette, following decalcification. /12/05/201812/05/2018
== END 2018-12-06 15:10 | disposition home or self-care (01) | DRG 470 ==
LOC: FM/S 05:52
PROVIDERS: ADMIT Orthopaedic Surgery Orthopaedic Surgery of the Spine; ATTEND Orthopaedic Surgery Orthopaedic Surgery of the Spine
PROC: 0SRD0J9 Replacement of Left Knee Joint with Synthetic Substitute, Cemented, Open Approach (ICD-10-PCS; principal; 2018-12-04 09:05)
DX: M17.12 Unilateral primary osteoarthritis, left knee (principal); I10 Essential (primary) hypertension; I25.10 Atherosclerotic heart disease of native coronary artery without angina pectoris; B19.20 Unspecified viral hepatitis C without hepatic coma; E78.5 Hyperlipidemia, unspecified
CPT/HCPCS: 36415; 73560-TC-LT-FY; 80048; 85027; 88304-TC; 88311-TC; 94760; 97116-GP; 97162-GP

== ENCOUNTER 2021-03-22 04:28 | Day surgery (SDC) | payer OTHER, BC ==
[2021-03-15 09:44] VITALS: BMI 32.8
[2021-03-22 12:14] VITALS: BP 135/82; PULSE 100; TEMP 97.5
[2021-03-22] MEDS ORDERED: BUPIVACAINE LIPOSOME/PF (EXPAREL) 266 MG/20 ML VIAL ONE (12:19)
[2021-03-22] MEDS ORDERED: SODIUM CHLORIDE 0.9% P/F 10 ML VIAL IJ ONE (12:20)
[2021-03-22] MEDS ORDERED: BUPIVACAINE HCL/PF 0.5% (5MG/ML) 10 ML VIAL ONE (13:10)
[2021-03-22] MEDS ORDERED: PROPOFOL 20 ML ONE ×2 (13:15)
[2021-03-22] MEDS ORDERED: MIDAZOLAM HCL 2 MG/2 ML SINGLE DOSE VIAL ONE (13:16)
== END 2021-03-22 14:45 | disposition home or self-care (01) ==
LOC: JASU-SURG 04:28 → J2C 04:28 → UNDOADMIN 04:28 → EDSTATUS 14:00 → JASU-SURG 14:45 → UNDODISIN 14:45
PROVIDERS: ATTEND Orthopaedic Surgery Orthopaedic Surgery of the Spine
DX: Z53.8 Procedure and treatment not carried out for other reasons (principal)
CPT/HCPCS: C9803; U0003; U0005

== ENCOUNTER 2021-08-10 05:45 | Inpatient (IN) | payer OTHER, BC ==
[2021-08-05 13:20] VITALS: BMI 33.4
[2021-08-10] MEDS ORDERED: BUPIVACAINE LIPOSOME/PF (EXPAREL) 266 MG/20 ML VIAL ONE (06:56)
[2021-08-10] MEDS ORDERED: SODIUM CHLORIDE 0.9% P/F 10 ML VIAL IJ ONE (06:56)
[2021-08-10] MEDS ORDERED: MIDAZOLAM HCL 2 MG/2 ML SINGLE DOSE VIAL ONE (06:56)
[2021-08-10] MEDS ORDERED: BUPIVACAINE HCL/PF 0.5% (5MG/ML) 10 ML VIAL ONE ×2 (06:56→08:08)
[2021-08-10] MEDS ORDERED: BENZOIN 118 ML SPRAY.PUMP TP ONE (07:25)
[2021-08-10] MEDS ORDERED: SUCCINYLCHOLINE CHLORIDE 200 MG/10 ML SYRINGE ONE (08:02)
[2021-08-10] MEDS ORDERED: PROPOFOL 20 ML ONE ×2 (08:02)
[2021-08-10] MEDS ORDERED: DEXMEDETOMIDINE HCL 200 MCG/2 ML IVPB ONE (08:08)
[2021-08-10] MEDS ORDERED: ePHEDrine SULFATE 50 MG/1 ML AMPULE ONE (10:20)
[2021-08-10] MEDS ORDERED: MAG HYDROX/AL HYDROX/SIMETH 30 ML UNIT-DOSE CUP PO PRN (13:46)
[2021-08-10] MEDS ORDERED: MAGNESIUM HYDROX 2400MG/30ML ORAL SUSPENSION 30 ML CUP PO PRN (13:46)
[2021-08-10] MEDS ORDERED: ONDANSETRON 4 MG/2 ML VIAL IVPUSH PRN ×2 (13:46→13:57)
[2021-08-10] MEDS ORDERED: ACETAMINOPHEN 1000 MG/100 ML VIAL IVPB ONE (13:57)
[2021-08-10] MEDS ORDERED: oxyCODONE HCL 5 MG TABLET PO PRN (13:57)
[2021-08-10] MEDS ORDERED: LACTATED RINGERS SOLUTION 1,000 ML IV SCH (14:00)
[2021-08-10] MEDS ORDERED: ceFAZolin SODIUM 1 GM VIAL ONE ×2 (18:01→21:20)
[2021-08-10] MEDS ORDERED: DEXTROSE 5%-WATER - 50 ML IVPB ONE ×2 (18:01→21:21)
[2021-08-10] MEDS: CEFAZOLIN 2 GM in DEXTROSE 5%-WATER - 50 ML IVPB SCH (18:05)
[2021-08-10] MEDS: FENOFIBRIC ACID 135 MG CAP PO SCH (21:28)
[2021-08-10] MEDS: oxyCODONE HCL 5 MG TABLET PO PRN (21:28)
[2021-08-10] MEDS: ASPIRIN COATED 81 MG TABLET.EC PO SCH (21:28)
[2021-08-10] MEDS: SENNOSIDES/DOCUSATE COMBO (SENNA PLUS) TABLET (UD) PO SCH (21:28)
[2021-08-10] MEDS: EZETIMIBE 10 MG TABLET (FP) PO SCH (21:29)
[2021-08-10] MEDS: METOPROLOL TARTRATE 25 MG TABLET (FP) PO SCH (21:29)
[2021-08-10] MEDS ORDERED: FENOFIBRATE PO SCH (22:00)
[2021-08-11] MEDS: CEFAZOLIN 2 GM in DEXTROSE 5%-WATER - 50 ML IVPB SCH ×2 (00:02→05:12)
[2021-08-11] MEDS ORDERED: DEXTROSE 5%-WATER - 50 ML IVPB ONE (04:20)
[2021-08-11] MEDS ORDERED: ceFAZolin SODIUM 1 GM VIAL ONE (04:20)
[2021-08-11] MEDS: oxyCODONE HCL 5 MG TABLET PO PRN (04:27)
[2021-08-11] MEDS: INSULIN SLIDING SCALE (NOVOLOG) 1 VIAL SQ SCH ×2 (08:34→21:13)
[2021-08-11] MEDS: ASPIRIN COATED 81 MG TABLET.EC PO SCH ×2 (10:22→21:12)
[2021-08-11] MEDS: CELECOXIB 200 MG CAPSULE PO SCH (10:22)
[2021-08-11] MEDS: PANTOPRAZOLE 40 MG TABLET PO SCH (10:23)
[2021-08-11] MEDS: METOPROLOL TARTRATE 25 MG TABLET (FP) PO SCH ×3 (10:23→22:14)
[2021-08-11] MEDS: SENNOSIDES/DOCUSATE COMBO (SENNA PLUS) TABLET (UD) PO SCH ×2 (10:23→21:12)
[2021-08-11] MEDS: FENOFIBRIC ACID 135 MG CAP PO SCH (21:11)
[2021-08-11] MEDS: EZETIMIBE 10 MG TABLET (FP) PO SCH (21:12)
[2021-08-12] MEDS: INSULIN SLIDING SCALE (NOVOLOG) 1 VIAL SQ SCH ×4 (07:53→11:19)
[2021-08-12 08:39] VITALS: BP 104/60; TEMP 98.7
[2021-08-12 08:40] VITALS: PULSE 89
[2021-08-12] MEDS: CELECOXIB 200 MG CAPSULE PO SCH (09:03)
[2021-08-12] MEDS: ASPIRIN COATED 81 MG TABLET.EC PO SCH (09:03)
[2021-08-12] MEDS: METOPROLOL TARTRATE 25 MG TABLET (FP) PO SCH (09:04)
[2021-08-12] MEDS: PANTOPRAZOLE 40 MG TABLET PO SCH (09:04)
[2021-08-12] MEDS: SENNOSIDES/DOCUSATE COMBO (SENNA PLUS) TABLET (UD) PO SCH (09:04)
== END 2021-08-12 14:28 | disposition home or self-care (01) | DRG 468 ==
LOC: FASUSAT 05:45 → FM/S 16:08 → FASUSAT 08-11 11:00 → FM/S 08-11 11:01
PROVIDERS: ADMIT Orthopaedic Surgery Orthopaedic Surgery of the Spine; ATTEND Orthopaedic Surgery Orthopaedic Surgery of the Spine
PROC: 0SBD0ZZ Excision of Left Knee Joint, Open Approach (ICD-10-PCS; 2021-08-10)
PROC: 0Q8 Lower Bones, Division (ICD-10-PCS; 2021-08-10)
PROC: 0SWW0JZ Revision of Synthetic Substitute in Left Knee Joint, Tibial Surface, Open Approach (ICD-10-PCS; principal; 2021-08-10 10:29)
DX: T84.023A Instability of internal left knee prosthesis, initial encounter (principal); E78.5 Hyperlipidemia, unspecified; I25.10 Atherosclerotic heart disease of native coronary artery without angina pectoris; E11.9 Type 2 diabetes mellitus without complications; I10 Essential (primary) hypertension; Y83.9 Surgical procedure, unspecified as the cause of abnormal reaction of the patient, or of later complication, without mention of misadventure at the time of the procedure
CPT/HCPCS: 73560-TC-LT-FY; 88305-TC; 88311-TC; 94010; 94760; 97010-GP; 97116-GP; 97162-GP; C9803; J0131; U0003; U0005